=== PATIENT | male | born 1990 | race Caucasian/White ===

== ENCOUNTER 2019-08-14 22:20 | Emergency (ER) | payer SELFPAY ==
[2019-08-14] MEDS ORDERED: Sodium Chloride 0.9% 2.5 ML Syringe FLUSH PRN (22:31)
[2019-08-14] MEDS ORDERED: Sodium Chloride 0.9% 10 ML Syringe FLUSH PRN (22:31)
[2019-08-14] MEDS ORDERED: Lactated Ringers 1,000 ML IV ONE (23:24)
[2019-08-14 23:28] LABS: BLOOD UREA NITROGEN,BUN 8 mg/dL (7.0-18.0); CARBON DIOXIDE,CO2 22.5 mmol/L (21.0-32.0); CHLORIDE,CL 101 mmol/L (98-107); GLUCOSE RANDOM 109 mg/dL (74-106); POTASSIUM,K 3.5 mmol/L (3.5-5.1); SODIUM,NA 139 mmol/L (136-148)
--- NOTE | 2019-08-14 23:48 | CR ---
HISTORY: Chest pain. COMPARISON: None. FINDINGS: Two views of the chest. The lungs are clear. No pneumothorax. Heart size and pulmonary vascularity are within normal limits. Bony thorax intact. IMPRESSION: No acute pulmonary process. Dictated by Karmen Aguirre MD @ Aug 14 2019 11:45PM Signed by Dr. Karmen Aguirre @ Aug 14 2019 11:46PM
[2019-08-15] MEDS ORDERED: LORazepam 0.5 MG Tab PO ONE (00:04)
[2019-08-15] MEDS ORDERED: Acetaminophen 500 MG Tab PO ONE (00:04)
[2019-08-15] MEDS ORDERED: Ibuprofen 400 MG Tab PO ONE (00:04)
--- NOTE | 2019-08-15 00:57 | EDM.PDOC ---
ED HPI GENERAL MEDICAL PROBLEM - General Chief Complaint: Chest Pain Stated Complaint: EMS ARRIVAL Time Seen by Provider: 08/14/19 22:30 Source of Information: Reports: Patient, Old Records History Limitations: Reports: No Limitations - History of Present Illness INITIAL COMMENTS - FREE TEXT/NARRATIVE: 29-year-old male with no past medical history presenting with palpitations, a nxiety, and chest discomfort. Patient was sitting at home watching TV when he began feeling extremely anxious, this started around 9 PM this evening. He had been drinking some alcohol earlier. He smoked a marijuana joint to try to help with symptoms but then afterwards began experiencing substernal chest pressure along with palpitations. He is concerned that the marijuana joint may have been laced with some other drugs. At present, he complains of substernal chest pressure, nonradiating, constant. Nothing makes it better or worse. He also complains of some intermittent palpitations. Denies any shortness of breath. No prior history of coronary artery disease or venous thromboembolism. No self treatment prior to arrival. Denies leg swelling or pain, hemoptysis, history of cancer, recent long travel or immobilization, recent surgery. Treatments LIFE SCIENTIST: Reports: IV/IO, Other (see below) Other Treatments LIFE SCIENTIST: 324 mg ASA, 1 nitro spray by EMS Middle Chest Pain Score (Numeric/FACES): 5 - Related Data Allergies Allergy/AdvReac Type Severity Reaction Status Date / Time No Known Allergies Allergy Verified 08/14/19 22:36 Home Meds: Home Meds . [No Known Home Meds] 08/14/19 [History] Past Medical History HEENT History: Reports: Impaired Vision Other HEENT History: wears glasses Psychiatric History: Reports: Anxiety, Panic Attack, Other (See Below) Other Psychiatric History: panic disorder - Past Surgical History Musculoskeletal Surgical History: Reports: Other (See Below) Other Musculoskeletal Surgeries/Procedures:: left elbow Dermatological Surgical History: Reports: Skin Graft Social & Family History - Family History Family Medical History: Noncontributory - Tobacco Use Smoking Status *Q: Current Every Day Smoker Years of Tobacco use: 15 Packs/Tins Daily: 0.5 - Recreational Drug Use Recreational Drug Use: Yes Drug Use in Last 12 Months: Yes Recreational Drug Type: Reports: Marijuana/Hashish ED ROS GENERAL - Review of Systems Review Of Systems: See Below Constitutional: Denies: Fever, Chills HEENT: Reports: No Symptoms Respiratory: Denies: Shortness of Breath, Pleuritic Chest Pain, Cough, Hemoptysis Cardiovascular: Reports: Chest Pain, Palpitations Endocrine: Reports: No Symptoms GI/Abdominal: Denies: Abdominal Pain, Diarrhea, Nausea, Vomiting : Denies: Flank Pain Musculoskeletal: Denies: Back Pain Skin: Denies: Diaphoresis, Rash, Lesions Neurological: Denies: Headache Psychiatric: Reports: Anxiety. Denies: Confusion, Hallucinations Hematologic/Lymphatic: Reports: No Symptoms Immunologic: Reports: No Symptoms ED EXAM, GENERAL - Physical Exam Exam: See Below Free Text/Narrative:: Vital signs reviewed. Nursing notes reviewed. Constitutional: Awake, alert, non-distressed. Head: Normocephalic, atraumatic. Eyes: EOMI, conjunctiva normal, no discharge, no scleral icterus. Ears, Nose, Throat: External ears and nose normal, moist oral mucosa. Cardiovascular: Tachycardic, 2+ radial pulses bilaterally, capillary refill less than 2 seconds. RRR no MRG Pulmonary: normal work of breathing, no accessory muscle use. CTA BL Abdomen/GI: Soft, nontender, nondistended, no guarding or rigidity, no masses. Musculoskeletal: No deformities. Integumentary: Appropriate color for ethnicity, warm, dry, no pallor or jaundice, no rash. Neurologic: Alert, answering questions appropriately, normal speech, no facial droop, moving all extremities well. Psychiatric: Appropriate mood and affect, normal thought process. EKG INTERPRETATION EKG Interpretation Comments: 12-Lead ECG Interpretation Acquired: Rhythm: Sinus rhythm Rate: [place]: Normal Intervals: Normal Ectopy: None Ischemic Changes: None apparent RV Strain: No obvious RV strain pattern. ST Segments/T-Waves: No notable changes Interpretation: Unremarkable Course - Vital Signs Text/Narrative:: Patient hemodynamically stable, afebrile, well-appearing, looks nontoxic. Differential diagnosis includes but is not limited to: ACS, pulmonary embolism, aortic dissection, acute systolic heart failure, pneumonia, pneumothorax, pericardial effusion, pleural effusion, pericarditis, endocarditis, esophageal rupture, GERD, drug-induced chest pain, chest wall pain, and many others. Chest x-ray looks nonischemic. Negative troponin and d-dimer. Given IV fluids, p.o. acetaminophen, p.o. Ativan. Heart rate in the low 100s after these therapies but feeling much better. Suspect an element of anxiety attack exacerbated by illicit drug use. Low suspicion for coronary ischemia or pulmonary embolism at this point given a negative work-up. Chest x-rays are clear. Mediastinum is not widened. No evidence of heart failure on examination. Lungs are clear to auscultation. No murmur, low suspicion for endocarditis or pericardial effusion. No history of chest wall trauma. No infectious symptoms. Plan: Patient is stable to discharge home with outpatient primary care follow- up. Strict emergency department return precautions were provided, patient indicated understanding. All questions were answered prior to departure. Discharged in good condition. Last Recorded V/S: Last Vital Signs Temp 36.6 C 08/14/19 22:33 Pulse 101 H 08/15/19 00:52 Resp 16 08/15/19 00:52 BP 136/91 H 08/15/19 00:52 Pulse Ox 94 L 08/15/19 00:52 - Orders/Labs/Meds Orders: Active Orders 24 hr Category Date Time Status Cardiac Monitoring [RC] . DIRECTED Care 08/14/19 22:31 Active EKG 12 Lead [EKG Documentation Completion] [RC] STAT Care 08/14/19 22:31 Active Pulse Oximetry [RC] ASDIRECTED Care 08/14/19 22:31 Active Saline Lock Insert [OM.PC] Stat Oth 08/14/19 22:31 Ordered Labs: Laboratory Tests 08/14/19 08/14/19 08/14/19 Range/Units 22:46 22:46 22:46 WBC 5.77 (4.0-11.0) K/uL RBC 4.96 (4.50-5.90) M/uL Hgb 15.2 (13.0-17.0) g/dL Hct 44.0 (38.0-50.0) % MCV 88.7 (80.0-98.0) fL MCH 30.6 (27.0-32.0) pg MCHC 34.5 (31.0-37.0) g/dL RDW Std Deviation 38.8 (28.0-62.0) fl RDW Coeff of Nohemi 12 (11.0-15.0) % Plt Count 242 (150-400) K/uL MPV 9.00 (7.40-12.00) fL Neut % (Auto) 42.5 L (48.0-80.0) % Lymph % (Auto) 44.0 H (16.0-40.0) % [place] % (Auto) 8.3 (0.0-15.0) % Eos % (Auto) 4.9 (0.0-7.0) % Baso % (Auto) 0.3 (0.0-1.5) % Neut # (Auto) 2.5 (1.4-5.7) K/uL Lymph # (Auto) 2.5 H (0.6-2.4) K/uL [place] # (Auto) 0.5 (0.0-0.8) K/uL Eos # (Auto) 0.3 (0.0-0.7) K/uL Baso # (Auto) 0.0 (0.0-0.1) K/uL Nucleated RBC % 0.0 /100WBC Nucleated RBCs # 0 K/uL D-Dimer, Quantitative 0.39 (0.0-0.50) mg/L FEU Sodium 139 (136-148) mmol/L Potassium 3.5 (3.5-5.1) mmol/L Chloride 101 (98-107) mmol/L Carbon Dioxide 22.5 (21.0-32.0) mmol/L BUN 8 (7.0-18.0) mg/dL Creatinine 1.0 (0.8-1.3) mg/dL Est Cr Clr Drug Dosing TNP Estimated GFR (MDRD) > 60.0 ml/min Glucose 109 H (74-106) mg/dL Calcium 8.6 (8.5-10.1) mg/dL Total Bilirubin 0.6 (0.2-1.0) mg/dL AST 37 (15-37) IU/L ALT 38 (14-63) IU/L Alkaline Phosphatase 68 (46-116) U/L Troponin I < 0.050 (0.000-0.056) ng/mL Total Protein 7.6 (6.4-8.2) g/dL Albumin 4.2 (3.4-5.0) g/dL Globulin 3.4 (2.6-4.0) g/dL Albumin/Globulin Ratio 1.2 (0.9-1.6) Meds: Medications Discontinued Medications Generic Name Dose Route Start Last Admin Trade Name Reynaldoq PRN Reason Stop Dose Admin Acetaminophen 1,000 mg 08/15/19 00:04 08/15/19 00:17 Tylenol Extra Strength PO 08/15/19 00:05 1,000 mg ONETIME ONE Administration Lactated Ringer's 1,000 mls @ 999 mls/hr 08/14/19 23:24 08/15/19 00:19 Ringers, Lactated IV 08/15/19 00:24 999 mls/hr .BOLUS ONE Administration Ibuprofen 400 mg 08/15/19 00:04 08/15/19 00:18 Motrin PO 08/15/19 00:05 400 mg ONETIME ONE Administration Lorazepam 0.5 mg 08/15/19 00:04 08/15/19 00:18 Ativan PO 08/15/19 00:05 0.5 mg ONETIME ONE Administration Sodium Chloride 10 ml 08/14/19 22:31 Saline Flush FLUSH ASDIRECTED PRN Keep Vein Open Sodium Chloride 2.5 ml 08/14/19 22:31 Saline Flush FLUSH ASDIRECTED PRN Keep Vein Open Departure - Departure Time of Disposition: 00:57 Disposition: Home, Self-Care 01 Condition: Good Clinical Impression: Atypical chest pain, Palpitations, Anxiety state, Marijuana use Instructions: Cannabis Use Disorder, Nonspecific Chest Pain, Adult, [id number], Palpitations, [id number] Referrals: [facility] [Provider Group] - 1 Week (As needed for follow-up of any complaints.) Forms: ED Department Discharge Additional Instructions: Thank you for choosing the [facility] emergency department in [place] for your medical needs today. It was a pleasure caring for you. You were seen in the emergency department for chest discomfort, palpitations, and anxiety symptoms. Your EKG, blood work, and x-rays look reassuring. I am glad you are feeling better after receiving some medications. I think that your symptoms are likely due to the cannabis use and possibly due to the alcohol earlier. I recommend abstaining from alcohol and drugs in the future. I would like for you to follow-up with a primary doctor the next couple of days if you are not feeling back to normal. Come back to the ER immediately if you are feeling worse. Please return the emergency department immediately if your symptoms worsen or if you feel worse. The following information is given to patients seen in the emergency department who are being discharged. This information is to outline your options for follow-up care. We provide all patients seen in our emergency department with a follow-up referral. The need for follow-up, as well as the timing and circumstances, are variable depending upon the specifics of your emergency department visit. If you don't have a primary care physician on staff, we will provide you with a referral. We always advise you to contact your personal physician following an emergency department visit to inform them of the circumstance of the visit and for follow-up with them and/or the need for any referrals to a consulting specialist. The emergency department will also refer you to a specialist when appropriate. This referral assures that you have the opportunity for follow-up care with a specialist. All of these measure are taken in an effort to provide you with optimal care, which includes your follow-up. Under all circumstances we always encourage you to contact your private physician who remains a resource for coordinating your care. When calling for follow-up care, please make the office aware that this follow-up is from your recent emergency room visit. If for any reason you are refused follow-up, please contact the [facility] Emergency Department at and asked to speak to the emergency department charge nurse. If you do not have a primary care physician that is caring for you, you can contact these clinics below to set up an appointment to establish care: [facility] [address] [place] [id number] [address] Sepsis Event Note (ED) - Evaluation Sepsis Screening Result: No Definite Risk - Focused Exam Vital Signs: Vital Signs Temp Pulse Resp BP Pulse Ox 08/15/19 00:52 101 H 16 136/91 H 94 L 08/14/19 22:33 36.6 C 122 H 18 121/83 97 - My Orders Last 24 Hours: My Active Orders 08/14/19 22:31 Cardiac Monitoring [RC] . DIRECTED EKG 12 Lead [EKG Documentation Completion] [RC] STAT Pulse Oximetry [RC] ASDIRECTED Saline Lock Insert [OM.PC] Stat - Assessment/Plan Last 24 Hours: My Active Orders 08/14/19 22:31 Cardiac Monitoring [RC] . DIRECTED EKG 12 Lead [EKG Documentation Completion] [RC] STAT Pulse Oximetry [RC] ASDIRECTED Saline Lock Insert [OM.PC] Stat
== END 2019-08-15 01:10 | disposition home or self-care (01) ==
LOC: MW.ED 22:20
DX: F41.1 Generalized anxiety disorder (principal); R07.89 Other chest pain; F12.90 Cannabis use, unspecified, uncomplicated; F17.210 Nicotine dependence, cigarettes, uncomplicated
CPT/HCPCS: 36415; 71046; 80053; 84484; 85025; 85379; 93005; 99285; A9270; J7120; 99283

== ENCOUNTER 2019-08-15 04:19 | Emergency (ER) | payer SELFPAY ==
[2019-08-15] MEDS ORDERED: Sodium Chloride 0.9% 2.5 ML Syringe FLUSH PRN (04:21)
[2019-08-15] MEDS ORDERED: Sodium Chloride 0.9% 10 ML Syringe FLUSH PRN (04:21)
[2019-08-15] MEDS ORDERED: LORazepam 2 MG/ML SDV IVPUSH ONE (04:33)
[2019-08-15] MEDS ORDERED: Lactated Ringers 1,000 ML IV ONE (04:33)
--- NOTE | 2019-08-15 05:06 | EDM.PDOC ---
ED HPI GENERAL MEDICAL PROBLEM - General Chief Complaint: General Stated Complaint: HEART ISSUES Time Seen by Provider: 08/15/19 04:20 Source of Information: Reports: Patient, Old Records History Limitations: Reports: No Limitations - History of Present Illness INITIAL COMMENTS - FREE TEXT/NARRATIVE: 29-year-old male with past medical history of methamphetamine and marijuana use presenting with palpitations, chest discomfort, shortness of breath. Seen by myself just a few hours ago for identical symptoms that started while the patient was watching TV in bed. At that time, he started feeling anxious without any inciting event. He smoked a marijuana joint and began to feel more anxious along with palpitations and dyspnea. He underwent a work-up in the ED including EKG, x-rays, labs, including a negative troponin and d-dimer and normal looking electrolytes. We gave him some IV fluids and oral lorazepam and he felt better and was discharged. He presents back to the emergency department this morning complaining of feeling worse. He states that he went home and his palpitations came back. He is now complaining of pain at the xiphoid process along with feeling "spaced out" and complains of dyspnea again. He states that he drank 1 beer when he went home did but denies any drug use. He states that he does use methamphetamine regularly, last used about 24 hours ago. He initially did not tell us this when he was here earlier in the evening. Abdomen Pain Score (Numeric/FACES): 7 - Related Data Allergies Allergy/AdvReac Type Severity Reaction Status Date / Time No Known Allergies Allergy Verified 08/15/19 04:30 Home Meds: Home Meds . [No Known Home Meds] 08/14/19 [History] Past Medical History HEENT History: Reports: Impaired Vision Other HEENT History: wears glasses Cardiovascular History: Reports: None Respiratory History: Reports: None Gastrointestinal History: Reports: None Genitourinary History: Reports: None Musculoskeletal History: Reports: None Neurological History: Reports: None Psychiatric History: Reports: Anxiety, Panic Attack, Other (See Below) Other Psychiatric History: panic disorder Endocrine/Metabolic History: Reports: None Insulin Pump Model and Production Control Manager: None Hematologic History: Reports: None Immunologic History: Reports: None Oncologic (Cancer) History: Reports: None Dermatologic History: Reports: None - Infectious Disease History Infectious Disease History: Reports: None - Past Surgical History Head Surgeries/Procedures: Reports: None Musculoskeletal Surgical History: Reports: Other (See Below) Other Musculoskeletal Surgeries/Procedures:: left elbow Dermatological Surgical History: Reports: Skin Graft Social & Family History - Family History Family Medical History: Noncontributory - Tobacco Use Smoking Status *Q: Current Every Day Smoker Years of Tobacco use: 15 Packs/Tins Daily: 0.5 - Caffeine Use Caffeine Use: Reports: Soda - Recreational Drug Use Recreational Drug Use: Yes Drug Use in Last 12 Months: Yes Recreational Drug Type: Reports: Marijuana/Hashish, Methamphetamine Recreational Drug Last Use: 08/15/2019 Recreational Drug Route: Reports: Inhaled ED ROS GENERAL - Review of Systems Review Of Systems: See Below Constitutional: Denies: Fever HEENT: Reports: No Symptoms Respiratory: Reports: Shortness of Breath Cardiovascular: Reports: Chest Pain, Lightheadedness, Palpitations Endocrine: Reports: No Symptoms GI/Abdominal: Denies: Abdominal Pain, Nausea, Vomiting : Denies: Flank Pain Musculoskeletal: Denies: Back Pain Skin: Denies: Lesions Neurological: Denies: Headache Psychiatric: Reports: Anxiety. Denies: Agitation, Hallucinations, Homicidal Ideation, Suicidal Ideation ED EXAM, GENERAL - Physical Exam Exam: See Below Free Text/Narrative:: Vital signs reviewed. Nursing notes reviewed. Constitutional: Awake, alert, non-distressed. Head: Normocephalic, atraumatic. Eyes: EOMI, conjunctiva normal, no discharge, no scleral icterus. Ears, Nose, Throat: External ears and nose normal, moist oral mucosa. Cardiovascular: 2+ radial pulse, capillary refill less than 2 seconds. RRR no MRG Pulmonary: normal work of breathing, no accessory muscle use. CTA BL Abdomen/GI: Soft, nontender, nondistended, no guarding or rigidity, no masses. Musculoskeletal: No deformities. Integumentary: Appropriate color for ethnicity, warm, dry, no pallor or jaundice, no rash. Neurologic: Alert, answering questions appropriately, normal speech, no facial droop, moving all extremities well. Psychiatric: Appropriate mood and affect, normal thought process. Exam Limited By: No Limitations EKG INTERPRETATION EKG Interpretation Comments: 12-Lead ECG Interpretation Acquired: 4:30 AM Rhythm: Sinus rhythm Rate: 90 bpm [place]: Normal Intervals: Normal Ectopy: None Ischemic Changes: None apparent RV Strain: No obvious RV strain pattern. ST Segments/T-Waves: No notable changes Interpretation: Unremarkable Course - Vital Signs Text/Narrative:: Patient hemodynamically stable, afebrile, well-appearing, looks nontoxic. Differential diagnosis includes but is not limited to: Anxiety state, palpitations, arrhythmia, ectopy, electrolyte disturbance, thyroid disease, drug use, alcohol use, drug or alcohol withdrawal, cardiac valvular disturbance, myocardial infarction, pulmonary embolism, etc. Patient was seen just a few hours ago here in the ER for nearly identical complaints. Troponin and d-dimer were negative at that point, CBC and electrolytes looks normal, so we did not repeat most of these labs. We repeated a twelve-lead EKG, which essentially looks unchanged, no evidence of ischemia or ectopy or arrhythmia. We performed a second troponin which is also negative. TSH is mildly low but is still detectable. Lipase WNL. We gave the patient some IV fluids along with with IV lorazepam and IV haloperidol. His h eadache went away and he felt better after these medications. At this point he is interested in being discharged home. I strongly recommended that he refrain from any further alcohol or drug use as I strongly believe that this is contributing to his symptoms. Plan: Patient is stable to discharge home with outpatient primary care follow- up. Strict emergency department return precautions were provided, patient indicated understanding. All questions were answered prior to departure. Discharged in good condition. Last Recorded V/S: Last Vital Signs Temp 36.6 C 08/15/19 04:30 Pulse 96 08/15/19 06:31 Resp 18 08/15/19 06:31 BP 134/86 08/15/19 06:31 Pulse Ox 94 L 08/15/19 06:31 - Orders/Labs/Meds Orders: Active Orders 24 hr Category Date Time Status Cardiac Monitoring [RC] . DIRECTED Care 08/15/19 04:21 Active EKG Documentation Completion [RC] STAT Care 08/15/19 04:21 Active Pulse Oximetry [RC] ASDIRECTED Care 08/15/19 04:21 Active Sodium Chloride 0.9% [Saline Flush] Med 08/15/19 04:21 Active 10 ml FLUSH ASDIRECTED PRN Sodium Chloride 0.9% [Saline Flush] Med 08/15/19 04:21 Active 2.5 ml FLUSH ASDIRECTED PRN Saline Lock Insert [OM.PC] Stat Oth 08/15/19 04:21 Ordered Medication Orders Sodium Chloride (Saline Flush) 10 ml FLUSH ASDIRECTED PRN PRN Reason: Keep Vein Open Sodium Chloride (Saline Flush) 2.5 ml FLUSH ASDIRECTED PRN PRN Reason: Keep Vein Open Labs: Laboratory Tests 08/15/19 08/15/19 Range/Units 04:40 04:40 Troponin I < 0.050 (0.000-0.056) ng/mL Lipase 60 L (73-393) U/L TSH 3rd Generation 0.34 L (0.36-3.74) uIU/mL Meds: Medications Generic Name Dose Route Start Last Admin Trade Name Freq PRN Reason Stop Dose Admin Sodium Chloride 10 ml 08/15/19 04:21 Saline Flush FLUSH ASDIRECTED PRN Keep Vein Open Sodium Chloride 2.5 ml 08/15/19 04:21 Saline Flush FLUSH ASDIRECTED PRN Keep Vein Open Discontinued Medications Generic Name Dose Route Start Last Admin Trade Name Freq PRN Reason Stop Dose Admin Haloperidol Lactate 5 mg 08/15/19 05:40 08/15/19 05:45 Haldol IM 08/15/19 05:41 5 mg ONETIME ONE Administration Lactated Ringer's 1,000 mls @ 999 mls/hr 08/15/19 04:33 08/15/19 04:58 Ringers, Lactated IV 08/15/19 05:33 999 mls/hr .BOLUS ONE Administration Lorazepam 0.5 mg 08/15/19 04:33 08/15/19 04:59 Ativan IVPUSH 08/15/19 04:34 0.5 mg ONETIME ONE Administration Departure - Departure Time of Disposition: 06:24 Disposition: Home, Self-Care 01 Condition: Good Clinical Impression: Atypical chest pain, Palpitations, Marijuana use Dyspnea Qualifiers: Dyspnea type: unspecified Qualified Code(s): R06.00 - Dyspnea, unspecified - Discharge Information *PRESCRIPTION DRUG MONITORING PROGRAM REVIEWED*: Not Applicable *COPY OF PRESCRIPTION DRUG MONITORING REPORT IN PATIENT TONY: Not Applicable Instructions: Shortness of Breath, Adult, Osuf-am-Lmal, What You Need to Know About Marijuana Use, Nonspecific Chest Pain, Adult, [id number], Palpitations, [id number] Referrals: [facility] [Provider Group] - 1 Week (For follow-up of symptoms and drug cessation counseling.) Forms: ED Department Discharge Additional Instructions: Thank you for choosing the [facility] emergency department in [place] for your medical needs today. It was a pleasure caring for you. You were seen in the emergency department for palpitations, chest discomfort, shortness of breath, and feeling generally unwell. I am strongly suspicious that your symptoms are linked to the marijuana use earlier. At this point you have had quite the extensive work-up including negative blood work for a heart attack, blood clot, and your electrolytes and your blood count look normal. You have had 2 EKGs that look reassuring and normal chest x-rays. I would strongly memorial counselor you to stop drinking alcohol and stop using methamphetamines and marijuana. I would recommend you follow-up with our family medicine clinic in the next couple of days to discuss alcohol and drug cessation counseling and for follow- up of your symptoms. Please return the emergency department immediately if your symptoms worsen or if you feel worse. The following information is given to patients seen in the emergency department who are being discharged. This information is to outline your options for follow-up care. We provide all patients seen in our emergency department with a follow-up referral. The need for follow-up, as well as the timing and circumstances, are variable depending upon the specifics of your emergency department visit. If you don't have a primary care physician on staff, we will provide you with a referral. We always advise you to contact your personal physician following an emergency department visit to inform them of the circumstance of the visit and for follow-up with them and/or the need for any referrals to a consulting specialist. The emergency department will also refer you to a specialist when appropriate. This referral assures that you have the opportunity for follow-up care with a specialist. All of these measure are taken in an effort to provide you with optimal care, which includes your follow-up. Under all circumstances we always encourage you to contact your private physician who remains a resource for coordinating your care. When calling for follow-up care, please make the office aware that this follow-up is from your recent emergency room visit. If for any reason you are refused follow-up, please contact the [facility] Emergency Department at and asked to speak to the emergency department charge nurse. If you do not have a primary care physician that is caring for you, you can contact these clinics below to set up an appointment to establish care: [facility] - Primary Care [address] [place] [address] [facility] [address] [place] [id number] Sepsis Event Note (ED) - Evaluation Sepsis Screening Result: No Definite Risk - Focused Exam Vital Signs: Vital Signs Temp Pulse Resp BP Pulse Ox 08/15/19 06:31 96 18 134/86 94 L 08/15/19 05:56 103 H 20 139/92 H 93 L 08/15/19 04:30 36.6 C 103 H 18 138/97 H 98 - My Orders Last 24 Hours: My Active Orders 08/15/19 04:21 Cardiac Monitoring [RC] . DIRECTED EKG Documentation Completion [RC] STAT Pulse Oximetry [RC] ASDIRECTED Sodium Chloride 0.9% [Saline Flush] 10 ml FLUSH ASDIRECTED PRN Sodium Chloride 0.9% [Saline Flush] 2.5 ml FLUSH ASDIRECTED PRN Saline Lock Insert [OM.PC] Stat - Assessment/Plan Last 24 Hours: My Active Orders 08/15/19 04:21 Cardiac Monitoring [RC] . DIRECTED EKG Documentation Completion [RC] STAT Pulse Oximetry [RC] ASDIRECTED Sodium Chloride 0.9% [Saline Flush] 10 ml FLUSH ASDIRECTED PRN Sodium Chloride 0.9% [Saline Flush] 2.5 ml FLUSH ASDIRECTED PRN Saline Lock Insert [OM.PC] Stat
[2019-08-15] MEDS ORDERED: Haloperidol Lactate 5 MG/ML SDV IM ONE (05:40)
== END 2019-08-15 06:40 | disposition home or self-care (01) ==
LOC: MW.ED 04:19
DX: R07.89 Other chest pain (principal); R00.2 Palpitations; R06.02 Shortness of breath; F12.90 Cannabis use, unspecified, uncomplicated; F17.210 Nicotine dependence, cigarettes, uncomplicated
CPT/HCPCS: 36415; 83690; 84443; 84484; 93005; 96361; 96372; 96374; 99284; J1630; J2060; J7120; 99283